=== PATIENT | female | born 1955 | race Caucasian/White ===

== ENCOUNTER 2024-09-19 09:50 | Outpatient (REF) | payer MEDICARE, OTHER, SELFPAY ==
[2024-09-19 13:41] LABS: Leukocytes Stool Qualitative NEGATIVE (NEGATIVE)
[2024-09-21 09:49] LABS: Campylobacter Not Detected (Not Detect.); E. coli EAEC Not Detected (Not Detect.); E. coli EPEC Not Detected (Not Detect.); E. coli ETEC Not Detected (Not Detect.); E. coli STEC Not Detected (Not Detect.); Plesiomonas shigelloides Not Detected (Not Detect.); Salmonella Not Detected (Not Detect.); Vibrio Not Detected (Not Detect.); Vibrio Cholerae Not Detected (Not Detect.); Yersinia enterocolitica Not Detected (Not Detect.)
[2024-09-21 09:50] LABS: Adenovirus F 40/41 Not Detected (Not Detect.); Astrovirus Not Detected (Not Detect.); Cryptosporidium Not Detected (Not Detect.); Cyclospora cayetanensis Not Detected (Not Detect.); Entamoeba histolytica Not Detected (Not Detect.); Giardia lamblia Not Detected (Not Detect.); Rotavirus A Not Detected (Not Detect.); Sapovirus Not Detected (Not Detect.); Shigella sp./EIEC Not Detected (Not Detect.)
[2024-09-21 09:51] LABS: Norovirus GI/GII Detected (Not Detect.)
[2024-09-24 13:24] LABS: Fecal Fat Qualitative Normal (Normal)
[2024-09-25 01:34] LABS: Pancreatic Elastase-1 >800 mcg/g (>200)
== END 2024-09-19 09:51 | disposition home or self-care (01) ==
LOC: HO.LNP 09:50
PROVIDERS: Visit Provider Internal Medicine Gastroenterology
DX: R19.4 Change in bowel habit (principal)
CPT/HCPCS: 82656; 82705; 87177; 87209; 87507; 89055